=== PATIENT | female | born 1990 | race Hispanic/Latino ===

== ENCOUNTER 2024-02-22 10:56 | Emergency (ER) | payer SELFPAY ==
[2024-02-22] MEDS ORDERED: predniSONE 20 MG TAB ONE (11:12)
== END 2024-02-22 11:28 | disposition home or self-care (01) ==
LOC: NAV ERS 10:56
DX: J45.909 Unspecified asthma, uncomplicated (principal)
CPT/HCPCS: 99284; J7512

== ENCOUNTER 2025-01-01 08:31 | Emergency (ER) | payer BC | END 2025-01-01 10:03 | disposition home or self-care (01) | LOC: NAV ERS 08:31 | DX: B34.9 Viral infection, unspecified (principal) | CPT/HCPCS: 87081; 87430; 99283 ==

== ENCOUNTER 2025-02-11 12:31 | Emergency (ER) | payer BC ==
[~2025-02-11 12:31] MED LIST: Iopamidol 370 76% 100 ML VIAL ONE
[2025-02-11] MEDS ORDERED: Ondansetron PF 4 MG/2 ML Vial ONE (12:45)
[2025-02-11 12:55] LABS: Glucose, Urine (Dipstick) Negative (Negative); Leukocyte Negative (Negative); Protein, Urine (Dipstick) Negative (Neg-Trace); Specific Gravity, Urine 1.020 (1.005-1.030)
[2025-02-11 13:07] LABS: CAUTI Indications for Culture Pelvic or flank pain; RBC/HPF 0-3 HPF (0-3); WBC/HPF None Seen HPF (0-3)
[2025-02-11 13:08] LABS: Urine Culture Reflex No No
[2025-02-11 13:10] LABS: BHCG - Serum Negative (NEGATIVE); Pregs Control Bar Appear? YES (CONTROL BAR)
[2025-02-11 13:17] LABS: ALT (SGPT) 8 U/L (Less than 34); AST (SGOT) 18 U/L (11-34); Albumin 4.0 g/dL (3.1-4.5); Alkaline Phosphatase 48 U/L (40-110); Anion Gap 16 mmol/L (10-20); BUN (Urea Nitrogen) 11 mg/dL (7.0-18.7); Bilirubin, Total 0.3 mg/dL (0.3-1.2); Calc. Creatinine Clearance 0 mL/min (70-130); Calcium 8.5 mg/dL (7.8-10.44); Carbon Dioxide 25 mmol/L (22-29); Chloride 105 mmol/L (98-107); Globulin 2.4 g/dL (2.4-3.5); Glucose 85 mg/dL (70-105); Potassium 3.6 mmol/L (3.5-5.1); White Blood Cell (WBC) Count 7.6 10x3/uL (4.8-10.8)
[2025-02-11 13:18] LABS: %Basophils 0.5 % (0.0-1.0); %Eosinophils 1.6 % (0.0-10.0); %Lymphocytes 27.3 % (21.0-51.0); %Monocytes 5.9 % (0.0-10.0); %Neutrophils 64.7 % (42.0-75.0); Hematocrit 35.1 % (36.0-47.0); Hemoglobin 11.8 g/dL (12.0-16.0); Mean Corpuscular Hemoglobin 26.5 pg (27.0-31.0); Mean Corpuscular Volume 79.0 fl (78.0-98.0); Platelet Count 252 10x3/uL (130-400)
[2025-02-11 13:19] LABS: #Basophils 0.0 thou/uL (0.0-0.2); #Eosinophils 0.1 thou/uL (0.0-0.7); #Lymphocytes 2.1 thou/uL (1.20-3.40); #Monocytes 0.5 thou/uL (0.11-0.59); #Neutrophils 4.9 thou/uL (1.40-6.50); Red Blood Cell (RBC) Count 4.45 mill/uL (4.20-5.40)
[2025-02-11 13:40] LABS: Sodium 142 mmol/L (136-145)
== END 2025-02-11 14:10 | disposition home or self-care (01) ==
LOC: NAV ERS 12:31
DX: R10.32 Left lower quadrant pain (principal); R11.0 Nausea
CPT/HCPCS: 74177; 80053; 81001; 84703; 85025; 96374; J2405; Q9967

== ENCOUNTER 2025-04-11 07:54 | Emergency (ER) | payer BC ==
[2025-04-11] MEDS ORDERED: Acetaminophen 325 MG TAB ONE (09:05)
== END 2025-04-11 09:20 | disposition home or self-care (01) ==
LOC: NAV ERS 07:54
DX: J10.1 Influenza due to other identified influenza virus with other respiratory manifestations (principal); H69.82 Other specified disorders of Eustachian tube, left ear
CPT/HCPCS: 99283